=== PATIENT | female | born 1990 | race Caucasian/White ===

== ENCOUNTER → 2016-07-01 | Outpatient (CLI) | payer OTHER ==
[~2016-07-01] MED LIST: ETON1IMP2 SUBD
[2016-07-05 01:40] LABS: CHLAMYDIA TRACH RNA*** NOT DETECTED (NOT DETECTED); GC (NEIS GONORRHOEAE)RNA** NOT DETECTED (NOT DETECTED)
== END | disposition home or self-care (01) ==
LOC: C.LABSPEC 14:29
PROVIDERS: ATTEND Obstetrics & Gynecology
DX: Z01.419 Encounter for gynecological examination (general) (routine) without abnormal findings (principal)

== ENCOUNTER → 2017-07-24 | Outpatient (CLI) | payer OTHER | END | disposition home or self-care (01) | LOC: C.PAPS 11:39 | PROVIDERS: ATTEND Obstetrics & Gynecology | DX: Z12.4 Encounter for screening for malignant neoplasm of cervix (principal) ==

== ENCOUNTER 2020-06-15 04:53 | Inpatient (IN) ==
[2020-06-15] MEDS ORDERED: OXYTOCIN 30 UNITS/500 ML BAG IV PRN ×3 (08:26→17:12)
--- NOTE | 2020-06-15 08:49 | History & Physical Report ---
Date of Service June 15, 2020 Assessment & Plan Admission and Anticipated Discharge Date Admission Date: June 15, 2020 IUP at 40+ weeks in early labor. would like to walk for now- will AROM with epidural analgesia when appropriate anticipate vaginal History of Present Illness Primary Care Provider: Angie Umanzor DO Patient is a 29 yo white female EDC 06/12/20 who presents with regular ctns since 2 am. (-) SPROM but she has been having some bloody show. she ahs now shown cervical change from 3cm to 4 cm. contractions are still mild. GBS (-) otherwise uncomplicated. blood type O (+) Allergies Allergy/AdvReac Type Severity Reaction Status Date / Time doxycycline AdvReac Unknown Nausea/Vomi Verified 06/08/20 10:29 ting promethazine AdvReac Unknown Hallucinate Verified 06/08/20 10:29 Home Medications Medication Instructions Recorded Confirmed Type [id number] 400 mcg-om3 35 mg-dha 25 2 tab PO DAILY 06/28/19 06/15/20 History mg-epa 5 mg-fish oil chewable tablet omeprazole magnesium 20 mg 20 mg PO DAILY 11/28/19 06/15/20 History capsule,delayed release Patient History Medical History Abdominal pain Chest pain Panic attack Kidney stone Missed Prior miscarriage with , antepartum Tachycardia panic attack Varicella vaccination Surgical History History of ankle surgery History of cholecystectomy History of oral surgery Tooth extraction History of tonsillectomy Family History Father Heart disease Hypertension Diabetes Grandfather (Paternal) Hypertension Grandfather (Maternal) Hypertension Grandmother (Paternal) Breast cancer Social History Smoking Status: Former smoker Hx Alcohol Use: No Hx Substance Use: No Preferred Language: Azeri Communication Ability: Effective Beliefs That Will Affect Care: None marital status: marital status details: Tyson Elena (30) [phone] Current Living Situation: Spouse Current Living Situation Comment: lives with spouse, dogs, cat-spouse changing litter current occupational status: employed 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 Other Information That Helps Us Care for You: No Feels Safe at Home: Yes Safety Concerns: Feels Safe At This Time Assistive Devices: Contacts and Glasses Review of Systems All systems reviewed & are unremarkable except as noted in HPI & below Physical Exam Constitutional: WD/WN, vitals as above Respiratory: normal respiratory effort, lungs clear to auscultation Cardiovascular: RRR, no murmur, no edema Gastrointestinal (Abdomen): normal bowel sounds, soft, nontender, no hepatosplenomegaly Psychiatric: A+Ox3, euthymic affect Genitourinary: OB Exam Abdomen: + vertex and + estimated weight (6-7 pounds) Manual OB Exam: + cervical dilation 4 cm, + cervical effacement 90% and + station 0 OB Exam Monitor Tracing: + external FHT monitor used, + external uterine monitor used, + category I and + normal FHT variability Results & Data ([facility]) Vital Signs (Past 12 Hours) Vital Signs Temp Pulse Resp BP 06/15/20 07:08 99.3 F 75 20 134/83 06/15/20 06:28 98.4 F 06/15/20 05:18 74 143/81 H 06/15/20 05:11 100.2 F H 18 Code Status & VTE Plan VTE Prophylaxis Plan VTE Prophylaxis will be ordered: No Coding Level of Care Code None
[2020-06-15 08:55] LABS: Hematocrit (blood only) 34.5 % (37-47); Hemoglobin 11.5 g/dL (12.0-16.0); Mean Corpuscular Hemoglobin 28.3 pg (25-34); Mean Corpuscular Hgb Conc 33.3 g/dL (32-36); Mean Corpuscular Volume 84.8 fL (80-100); Mean Platelet Volume 10.1 fL (7.4-10.4); Platelet Count 235 K/uL (130-400); RDW Coefficient of Variation 14.1 % (11.5-14.5); RDW Standard Deviation 43.6 fL (36.4-46.3); Red Blood Count 4.07 M/uL (4.2-5.4)
[2020-06-15] MEDS: LACTATED RINGER'S 1,000 ML IV PRN ×2 (12:26→14:43)
[2020-06-15] MEDS ORDERED: ePHEDrine sulfate 50 MG/ML AMP ONE (12:43)
[2020-06-15] MEDS ORDERED: SODIUM CHLORIDE 0.9% INJ 10 ML VIAL ONE (12:43)
[2020-06-15] MEDS ORDERED: BUPIVACAINE 0.25% 30 ML VIAL ONE (12:43)
[2020-06-15] MEDS ORDERED: fentaNYL 2MCG/ML ROPIVACAINE 1.25MG/ML 100 ML BAG EPI ONE (12:44)
[2020-06-15] MEDS ORDERED: fentaNYL citrate 100 MCG/2 ML VIAL ONE (12:44)
[2020-06-15] MEDS ORDERED: diphenhydrAMINE 50 MG/ML VIAL IV PRN (12:50)
[2020-06-15] MEDS ORDERED: fentaNYL 2MCG/ML ROPIVACAINE 1.25MG/ML 100 ML BAG EPI PRN (12:50)
[2020-06-15] MEDS ORDERED: NALOXONE HCL 1 MG in SODIUM CHLORIDE 0.9% 1000ML 1,000 ML IV PRN (12:50)
[2020-06-15] MEDS ORDERED: ePHEDrine sulfate 50 MG/ML AMP IV PRN (12:50)
[2020-06-15] MEDS ORDERED: ONDANSETRON INJ 2 MG/ML 2 ML VIAL IV PRN (12:50)
[2020-06-15] MEDS ORDERED: NALOXONE HCL 0.4 MG/1 ML VIAL/CARP IV PRN (12:50)
--- NOTE | 2020-06-15 12:52 | Anesthesiology Consultation ---
Date of Service June 15, 2020 Assessment & Plan (1) Encounter for pre-operative examination: Chart Review Chart Review: Patient NOT seen in Pre Admission Testing and Acceptable Risk for Labor Epidural Consults Requested none History Height/Weight Height: 5 ft 4 in Weight: 104.326 kg Allergies Allergy/AdvReac Type Severity Reaction Status Date / Time doxycycline AdvReac Unknown Nausea/Vomi Verified 06/08/20 10:29 ting promethazine AdvReac Unknown Hallucinate Verified 06/08/20 10:29 Medications Home Medications Medication Instructions Recorded Confirmed Last Taken [id number] 400 mcg-om3 35 mg-dha 25 2 tab PO DAILY 06/28/19 06/15/20 06/15/20 mg-epa 5 mg-fish oil chewable tablet omeprazole magnesium 20 mg 20 mg PO DAILY 11/28/19 06/15/20 06/15/20 capsule,delayed release Active Medications Generic Name Dose Route Start Last Admin Trade Name Freq PRN Reason Stop Dose Admin Lactated Ringer's 1,000 mls @ 125 mls/hr 06/15/20 08:26 06/15/20 13:10 Lr IV 06/17/20 08:25 125 mls/hr .Q8H PRN Infusion L&D Protocol Protocol Past Medical History Medical History Abdominal pain Chest pain Panic attack Kidney stone Missed Prior miscarriage with , antepartum Tachycardia panic attack Varicella vaccination Exercise / Class Metabolic Activity II 4-5 Yardwork/Stairs/Walk up hill Past Family History Family History Father Heart disease Hypertension Diabetes Grandfather (Paternal) Hypertension Grandfather (Maternal) Hypertension Grandmother (Paternal) Breast cancer Past Surgical History Surgical History History of ankle surgery History of cholecystectomy History of oral surgery Tooth extraction History of tonsillectomy Past Anesthesia History No Hx of Anesthesia Complications and No Family Hx of Anesthesia Complications History of PONV No Hx of PONV and No Hx of Motion Sickness Social History Smoking Status: Former smoker Do You Dip or Chew Tobacco: No Hx Alcohol Use: No Hx Substance Use: No Physical Exam Vital Signs Last Vital Signs Temp 36.7 C 06/15/20 11:52 Pulse 99 H 06/15/20 13:12 Resp 18 06/15/20 11:52 BP 134/79 06/15/20 11:54 Pulse Ox 100 06/15/20 13:12 Testing Laboratory Results 06/15/20 08:46
[2020-06-15] MEDS ORDERED: ACETAMINOPHEN 325 MG TAB PO PRN (16:52)
[2020-06-15] MEDS ORDERED: DIPHTHERIA/TETANUS/PERTUSSIS 0.5 ML SYR/VIAL IM ONE (17:12)
[2020-06-15] MEDS ORDERED: BENZOCAINE 20% AER SPR 82.5 GM CAN EXT PRN (17:12)
[2020-06-15] MEDS ORDERED: HYDROCORTISONE ACETATE 25 MG SUPP PR PRN (17:12)
[2020-06-15] MEDS ORDERED: bisacodyL 10 MG SUPP PR PRN (17:12)
[2020-06-15] MEDS ORDERED: SUPERCREAM 0.870% 15 GM JAR EXT PRN (17:12)
--- NOTE | 2020-06-15 18:13 | Anesthesia Procedure Note ---
Date of Service June 15, 2020 Anesthesia Post Epidural Note Vital Signs Vital Signs: Temp Pulse Resp BP Pulse Ox 36.9 C 102 H 16 149/71 H 100 06/15/20 16:42 06/15/20 17:58 06/15/20 17:27 06/15/20 17:58 06/15/20 16:42 Notes Mental Status: alert / awake / arousable and participated in evaluation Patient Amnestic to Procedure: No Nausea / Vomiting: adequately controlled Pain: adequately controlled Airway Patency, RR, SpO2: stable & adequate BP & HR: stable & adequate Hydration State: stable & adequate Neuraxial Anesthesia: was administered and sensory block is resolving Anesthetic Complications: no major complications apparent and Pt Satisfied with anesthetic care Epidural: Removed without complications and With tip intact
[2020-06-15] MEDS: IBUPROFEN 600 MG TAB PO PRN (18:30)
[2020-06-15] MEDS ORDERED: oxyCODONE/ACETAMINOPHEN 5mg/325mg TAB PO PRN (18:49)
[2020-06-15] MEDS: DOCUSATE SODIUM 100 MG CAP PO SCH (20:52)
--- NOTE | 2020-06-15 21:13 | Delivery Summary ---
Vaginal Delivery Summary Date of Service June 15, 2020 Patient is a 29-year-old -0-1-0 white female who presented in active labor. After she received effective epidural analgesia, membranes were ruptured for thin meconium stained fluid. Pitocin augmentation was begun. She progressed to full dilation and pushed effectively over intact perineum for delivery of a viable male infant. The rest of the delivered easily and was placed on the mother's abdomen for further attention and drying. There was spontaneous crying and the infant was vigorous. The placenta was expressed intact with a three-vessel cord. A second-degree perineal laceration was repaired with 3-0 chromic in the usual fashion. bleeding was controlled with dilute Pitocin. Estimated blood loss was 250 cc. Mother and infant were doing well after delivery. All counts were correct x2. [facility] Vaginal Delivery Charge Vaginal Delivery Codes: 79903 global code for the antepartum, delivery, and post-
[2020-06-16] MEDS: IBUPROFEN 600 MG TAB PO PRN ×3 (02:10→15:08)
[2020-06-16 06:02] LABS: Hematocrit (blood only) 31.5 % (37-47); Hemoglobin 10.6 g/dL (12.0-16.0)
--- NOTE | 2020-06-16 06:19 | Obstetrical Progress Note ---
Date of Service <Leoncio Noyola MD - Last Filed: 06/16/20 06:53> June 16, 2020 Assessment & Plan <Leoncio Noyola MD - Last Filed: 06/16/20 06:53> (1) state: 29 y/o F s/p at 40w3d on 06/15/20, PPD1. O+. Rubella immune. Stable. - complicated by obesity. delivery uncomplicated. - Meeting milestones. Ambulating, voiding, +BM, eating. - without difficulties. - pain is minimal. - normotensive since . Denies headache, vision changes, RUQ pain. - Hb 11.5->10.6, appropriate. 2nd degree laceration during delivery, repaired. - tentative dispo this PM. Subjective <Leoncio Noyola MD - Last Filed: 06/16/20 06:53> Ambulation: ambulating normally Voiding: no voiding problems Passing Gas:: Yes Diet Tolerance:: regular diet Lochia:: Moderate Feeding Type:: breast feeding Current Pain Level(1-10): 0 Pain is minimal, 0/10 after ibuprofen, received 2 tabs overnight. 1/10 pain level without. +BM. No complaints. Feels comfortable w/ late evening dispo home. Review of Systems Denies fever, chills, sweats Denies shortness of breath, chest pain, palpitations. Denies breast pain. Denies dysuria. Denies headache or changes in vision. Denies nausea/vomiting. Denies numbness, tingling, weakness. Physical Exam <Leoncio Noyola MD - Last Filed: 06/16/20 06:53> General: Alert, oriented. No acute distress. Cardiac: Regular rate and rhythm, no murmurs/rubs/gallops. Respiratory: Clear to auscultation bilaterally, no wheezes/rales/rhonchi. No respiratory distress. Abdomen: , soft, nontender. Uterus: Uterine fundus firm, palpable 1.5cm below umbilicus. Lower Extremities: No lower extremity edema or swelling. No deep calf pain. Kathleen's negative bilaterally. Results & Data ([facility]) <Leoncio Noyola MD - Last Filed: 06/16/20 06:53> Vital Signs (Past 12 Hours) Vital Signs Temp Pulse Pulse Resp BP BP Pulse Ox 06/16/20 03:20 36.6 C 78 18 119/72 97 06/15/20 23:20 36.9 C 89 18 122/74 97 06/15/20 19:25 36.9 C 116 H 20 122/81 97 06/15/20 18:58 106 H 145/69 H 06/15/20 18:43 126 H 162/70 H 06/15/20 18:28 96 H 164/72 H 06/15/20 18:27 37.0 C 16 06/15/20 18:22 106 H 160/75 H 06/15/20 18:19 16 Medications Administered <Beronica Malcolm MD, FACOG - Last Filed: 06/16/20 07:15> Co-Signing Physician Notes Resident Physician Supervision Note: I interviewed and examined the patient. Discussed with Dr. Costa and agree with findings and plan as documented in the note. Any exceptions or clarifications are listed here: [None] Documented By: Beronica Malcolm MD, FACOG Resident Activity Tracking <Leoncio Noyola MD - Last Filed: 06/16/20 06:53> Resident Involvement: Resident Care Provided Care Provided: OB Delivery
[2020-06-16] MEDS: DOCUSATE SODIUM 100 MG CAP PO SCH (07:45)
[2020-06-16] MEDS ORDERED: PRENATAL VITAMIN 1 TAB PO SCH (08:00)
[2020-06-16] MEDS ORDERED: bisacodyL 5 MG TABEC PO SCH (20:00)
== END 2020-06-16 18:15 | disposition home or self-care (01) ==
LOC: OPB 04:53 → 4S1 05:02 → 4S2 19:26

== ENCOUNTER 2022-01-19 19:52 | Inpatient (IN) ==
[2022-01-19] MEDS ORDERED: LACTATED RINGER'S 1,000 ML IV ONE (20:18)
[2022-01-19] MEDS ORDERED: ACETAMINOPHEN 325 MG TAB PO PRN (20:18)
[2022-01-19] MEDS ORDERED: ONDANSETRON INJ 2 MG/ML 2 ML VIAL IV PRN (20:18)
[2022-01-19 20:48] LABS: Hematocrit (blood only) 33.3 % (34.1-44.9); Hemoglobin 10.8 g/dl (12.0-16.0); Mean Corpuscular Hemoglobin 27.1 pg (25.0-34.0); Mean Corpuscular Hgb Conc 32.4 g/dL (32.0-36.0); Mean Corpuscular Volume 83.7 fL (80.0-100.0); Mean Platelet Volume 10.2 fL (9.4-12.3); Platelet Count 252 K/uL (130-400); RDW Coefficient of Variation 13.5 % (11.5-14.5); RDW Standard Deviation 41.3 fL (36.4-46.3); Red Blood Count 3.98 M/uL (3.93-5.22); White Blood Count 10.96 K/ul (4.8-10.8)
[2022-01-19 21:20] LABS: Albumin Globulin Ratio 1.3 (0.9-2); Albumin Level 3.4 gm/dl (3.4-5.0); BUN Creatinine Ratio 12.5 (10-20); Bilirubin,Total 0.3 mg/dl (0.2-1.0); Calcium 8.6 mg/dl (8.5-10.1); Creatinine Clr Calc Pharmacy 180.2 ml/min; Est GFR (Non-African American) 124.2 ml/min; Globulin 2.6 gm/dl (2.5-4.0); Potassium 4.1 mmol/L (3.5-5.1)
[2022-01-19 22:04] LABS: Appearance Urine Clear (Clear); Bacteria Urine Automated 2+ (Negative); Bilirubin Urine Negative (Negative); Blood Urine Negative (Negative); Color Urine Yellow; Epithelial Cell Urine Auto >30 /lpf (0-5); Glucose Urine UA Negative (Negative); Ketones Urine Trace (Negative); Leukocyte Esterase Urine Trace (Negative); Nitrite Urine Negative (Negative); Protein Urine Trace (Negative); RBC Urine Automated 0-4 /hpf (0-4); Specific Gravity Urine 1.028 (1.000-1.030); Urobilinogen Urine Negative (Negative); pH Urine 6.5 (4.5-7.5)
[2022-01-20] MEDS ORDERED: OXYTOCIN 30 UNITS/500 ML BAG IV PRN ×3 (00:30→12:24)
[2022-01-20] MEDS ORDERED: LACTATED RINGER'S 1,000 ML IV ONE (00:30)
--- NOTE | 2022-01-20 00:33 | History & Physical Report ---
Date of Service January 20, 2022 Assessment & Plan (1) Encounter for supervision of normal in multigravida, antepartum: Plan: Leisa is a 31-year-old currently at 38 weeks 1 day gestational age with gestational hypertension diagnosed today 1. Fetus: Cat1/2 with periods of tachycardia 2. labor: IOL with Pierre/Pitocin 3. GBS negative 4 gHTN: mild range blood pressures noted. Dip showed trace proteinuria with protein creatinine ratio pending. Preeclampsia labs normal. (2) Velamentous insertion of umbilical cord: (3) Gestational hypertension without significant proteinuria: History of Present Illness Primary Care Provider: Angie Umanzor DO Leisa is a 31-year-old currently at 38w 1d days gestational age presents for triage for right upper quadrant abdominal pain, nausea and fevers that started in the early afternoon today. patient is reporting irregular contractions. Denies vaginal bleeding leakage of fluid point good movement. upon arrival patient was noted have tachycardia and was given a LR bolus which brought the heart rate down to the 150s. Patient was noted have mild range blood pressures pre clamps a labs were sent which were normal. CBC was normal including a normal white blood cell count. patient was noted be afebrile. Patient was maintained on Labor and delivery for 4 hours was noted have intermittent blood pressures in the mild range over the 4 hours. After the diagnosis gestational hypertension was noted I discussed the finding with the patient and recommended that she stay for delivery due to gestational hypertension. Patient was agreeable. In additions the patient's was complicated by velamentous cord insertion, and BMI greater than 35. Patient had COVID within the past 90 days. Labs: OB Labs: Hemoglobin 11.2 g/dL (12.0-16.0) L 11/12/21 Hematocrit 33.9 % (37-47) L 11/12/21 Mean Corpuscular Volume 88.5 fL (80-100) 11/12/21 Platelet Count 237 K/uL (130-400) 11/12/21 Glucose 1 Hour 50 gm Load 133 mg/dl (70-130) H 11/10/21 OB Optional Labs: Thyroid Stimulating Hormone (TSH) 1.626 uIu/ml (0.300-4.500) 11/12/21 Labs Reviewed: cf/sma neg declines genetics. declines QUAD 28 wk 2hr GTT wnl Allergies Allergy/AdvReac Type Severity Reaction Status Date / Time doxycycline AdvReac Intermediate Nausea/Vomi Verified 01/19/22 13:37 ting promethazine AdvReac Intermediate Hallucinate Verified 01/19/22 13:37 adhesive tape AdvReac Mild blister Verified 01/19/22 13:37 Home Medications Medication Instructions Recorded Confirmed Type omeprazole magnesium 20 mg 20 mg PO DAILY 11/28/19 01/19/22 History capsule,delayed release (Acid Roll Shop Supervisor (omeprazole)) sertraline 25 mg tablet 50 mg PO DAILY 05/06/21 01/19/22 History cetirizine 10 mg tablet (Zyrtec) 10 mg PO PRN 06/30/21 01/19/22 History prenat.vits,david,nmg-ugmz-idigm 1 tab PO DAILY 06/30/21 01/19/22 History famotidine 20 mg tablet (Pepcid) 20 mg PO DAILY 01/19/22 01/19/22 History Patient History Medical History (Updated 01/20/22 @ 07:20 by Satish Galeas MD) Abdominal pain Abnormal Pap smear of cervix Anxiety Chest pain Panic attack Depression Kidney stone Missed Prior miscarriage with , antepartum Tachycardia panic attack Varicella vaccination Surgical History H/O adenoidectomy History of ankle surgery History of cholecystectomy History of colposcopy History of oral surgery Tooth extraction History of tonsillectomy Family History Father Heart disease Hypertension Diabetes Grandfather (Paternal) Hypertension Grandfather (Maternal) Hypertension Colorectal cancer Prostate cancer Grandmother (Paternal) Breast cancer Dementia Mother COPD (chronic obstructive pulmonary disease) Social History (Updated 06/30/21 @ 14:20 by Zohra SMITH RN) Smoking Status: Never smoker Tobacco Type: Cigarettes Hx Alcohol Use: No Hx Substance Use: No Preferred Language: Wolof Communication Ability: Effective Flour Tester Required: No Beliefs That Will Affect Care: None marital status: marital status details: Tyson Elena (32) [phone] Current Living Situation: Spouse and Family Current Living Situation Comment: FOB, child, 2 dogs current occupational status: employed 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 Other Information That Helps Us Care for You: No Feels Safe at Home: Yes Safety Concerns: Feels Safe At This Time Assistive Devices: Glasses Physical Exam Respiratory: normal respiratory effort, lungs clear to auscultation Cardiovascular: RRR, no murmur, no edema Gastrointestinal (Abdomen): Inspection/Auscultation: abdomen normal to inspection Percussion/Palpation: abdomen soft; abdomen nontender, no guarding and abdomen not rigid Genitourinary: normal external appearance OB Exam Abdomen: + vertex Manual OB Exam: + cervical dilation 1 cm, + cervical effacement 30% and + station high OB Exam Monitor Tracing: + external FHT monitor used, + external uterine monitor used, + category I and + normal FHT variability Periods of tachycardia noted. irregular contractions Results & Data ([facility]) Vital Signs (Past 12 Hours) Vital Signs Temp Pulse Resp BP 01/20/22 00:30 123 H 143/83 H 01/20/22 00:18 116 H 139/76 01/20/22 00:09 127 H 135/81 01/19/22 23:49 110 H 149/69 H 01/19/22 23:30 107 H 140/75 01/19/22 23:13 109 H 136/77 01/19/22 23:11 36.8 C 01/19/22 22:50 101 H 147/84 H 01/19/22 22:30 100 H 144/73 H 01/19/22 22:09 102 H 136/72 01/19/22 21:51 100 H 143/74 H 01/19/22 21:29 98 H 145/73 H 01/19/22 21:10 110 H 134/79 01/19/22 20:49 98 H 147/79 H 01/19/22 20:17 111 H 136/82 01/19/22 20:08 37.4 C 20 Coding Level of Care Code None Diagnoses Encounter for supervision of normal in multigravida, antepartum Z34.80 Velamentous insertion of umbilical cord O43.129 Gestational hypertension without significant proteinuria O13.9
[2022-01-20 01:00] LABS: Creatinine Urine Random 184.8 mg/dl; Protein Creatinine Ratio Urine 0.1 (0-0.2); Total Protein Urine Random 20.9 mg/dl (0-11.9)
[2022-01-20] MEDS: LACTATED RINGER'S 1,000 ML IV PRN ×2 (01:52→08:35)
--- NOTE | 2022-01-20 07:02 | Obstetrical Progress Note ---
Date of Service January 20, 2022 Subjective _ is a _ yo female G_P_ who is now PPD #_ following spontaneous vaginal delivery at _ weeks. Reports feeling well this morning. _ abdominal cramping and _/10 pain well managed on analgesics. Voiding _. Tolerating meals overnight and able to ambulate some._ passing gas and _bowel movements. Some persistent lochia with some improvement this morning. Currently (breast/bottle) feeding. Review of Systems Denies fever, chills, sweats. Denies SOB, difficulty breathing, chest pain, palpitations, and chest pressure. Denies breast pain. Denies dysuria. Denies headache or changes in vision. Physical Exam General: Alert and oriented. No acute distress. CV: Regular rate and rhythm. No murmurs. Respiratory: CTA bilaterally. No rhonchi, wheezes, or crackles. No increased work of breathing. Abdomen: Positive bowel sounds. Soft, nontender, non distended. Uterus: Fundus firm and palpable _ cm below the umbilicus. Lower extremities: No LE edema. No deep calf pain. Kathleen's negative bilaterally. Results & Data ([facility]) Vital Signs (Past 12 Hours) Vital Signs Temp Pulse Resp BP 01/20/22 06:28 112 H 01/20/22 06:28 123/70 01/20/22 05:07 104 H 01/20/22 05:07 109/63 01/20/22 04:05 126 H 01/20/22 04:05 122/64 01/20/22 02:30 20 01/20/22 02:30 36.7 C 20 01/20/22 02:22 104 H 01/20/22 02:22 132/74 01/20/22 01:06 20 01/20/22 01:06 38.1 C H 20 01/20/22 01:00 112 H 01/20/22 01:00 133/72 01/20/22 00:51 110 H 130/72 01/20/22 00:41 121 H 166/72 H 01/20/22 00:30 123 H 143/83 H 01/20/22 00:18 116 H 139/76 01/20/22 00:09 127 H 135/81 01/19/22 23:49 110 H 149/69 H 01/19/22 23:30 107 H 140/75 01/19/22 23:13 109 H 136/77 01/19/22 23:11 36.8 C 01/19/22 22:50 101 H 147/84 H 01/19/22 22:30 100 H 144/73 H 01/19/22 22:09 102 H 136/72 01/19/22 21:51 100 H 143/74 H 01/19/22 21:29 98 H 145/73 H 01/19/22 21:10 110 H 134/79 01/19/22 20:49 98 H 147/79 H 01/19/22 20:17 111 H 136/82 01/19/22 20:08 37.4 C 20
[2022-01-20] MEDS ORDERED: fentaNYL citrate 100 MCG/2 ML VIAL ONE (08:20)
[2022-01-20] MEDS ORDERED: SODIUM CHLORIDE 0.9% INJ 10 ML VIAL ONE (08:20)
[2022-01-20] MEDS ORDERED: BUPIVACAINE 0.25% 30 ML VIAL ONE (08:20)
[2022-01-20] MEDS ORDERED: LIDOCAINE 2%/EPINEPHRINE 1:200,000 20 ML SDV ONE (08:20)
[2022-01-20] MEDS ORDERED: ePHEDrine sulfate 50 MG/ML AMP ONE (08:20)
[2022-01-20] MEDS ORDERED: fentaNYL 2MCG/ML ROPIVACAINE 1.25MG/ML 100 ML BAG EPI ONE (08:21)
--- NOTE | 2022-01-20 08:49 | Labor Progress Brief Note ---
Date of Service January 20, 2022 Subjective Late entry. Pierre came out. denies yarbrough or visual change or ruq pain. Assessment & Plan (1) Gestational hypertension without significant proteinuria: (2) 38 weeks gestation of : Plan will see how arom helps labor pattern. pit continues. fhts categ 1. this was late entry note, seen approx 730a Admission and Anticipated Discharge Date Admission Date: January 20, 2022 Physical Exam Constitutional: WD/WN, vitals as above Genitourinary: Manual OB Exam: + cervical dilation 4 cm, + cervical effacement 40%, + station -2 and + amniotic fluid (AROM) clear OB Exam Monitor Tracing: + external FHT monitor used, + external uterine monitor used (irreg pit at 14), + category I and + normal FHT variability Results & Data ([facility]) Vital Signs (Past 12 Hours) Vital Signs Temp Pulse Resp BP 01/20/22 07:30 98.8 F 18 01/20/22 08:08 109 H 01/20/22 08:08 126/71 01/20/22 07:30 18 01/20/22 07:30 98.8 F 18 01/20/22 07:22 111 H 01/20/22 07:22 119/77 01/20/22 07:08 110 H 01/20/22 07:08 127/86 01/20/22 06:28 112 H 01/20/22 06:28 123/70 01/20/22 05:07 104 H 01/20/22 05:07 109/63 01/20/22 04:05 126 H 01/20/22 04:05 122/64 01/20/22 02:30 20 01/20/22 02:30 98.1 F 20 01/20/22 02:22 104 H 01/20/22 02:22 132/74 01/20/22 01:06 20 01/20/22 01:06 100.6 F H 20 01/20/22 01:00 112 H 01/20/22 01:00 133/72 01/20/22 00:51 110 H 130/72 01/20/22 00:41 121 H 166/72 H 01/20/22 00:30 123 H 143/83 H 01/20/22 00:18 116 H 139/76 01/20/22 00:09 127 H 135/81 01/19/22 23:49 110 H 149/69 H 01/19/22 23:30 107 H 140/75 01/19/22 23:13 109 H 136/77 01/19/22 23:11 98.2 F 01/19/22 22:50 101 H 147/84 H 01/19/22 22:30 100 H 144/73 H 01/19/22 22:09 102 H 136/72 01/19/22 21:51 100 H 143/74 H 01/19/22 21:29 98 H 145/73 H 01/19/22 21:10 110 H 134/79 01/19/22 20:49 98 H 147/79 H Coding Level of Care Code None Diagnoses Gestational hypertension without significant proteinuria O13.9 38 weeks gestation of Z3A.38
[2022-01-20] MEDS ORDERED: NALBUPHINE HCL INJ 10 MG/ML AMP IV PRN (09:14)
[2022-01-20] MEDS ORDERED: NALOXONE HCL 0.4 MG/1 ML VIAL/CARP IV PRN (09:14)
[2022-01-20] MEDS ORDERED: PROMETHAZINE HCL 6.25 MG in SODIUM CHLORIDE 0.9% 50 ML IV PRN (09:14)
[2022-01-20] MEDS ORDERED: ONDANSETRON INJ 2 MG/ML 2 ML VIAL IV PRN (09:14)
[2022-01-20] MEDS ORDERED: NALOXONE HCL 1 MG in SODIUM CHLORIDE 0.9% 1000ML 1,000 ML IV PRN (09:14)
[2022-01-20] MEDS ORDERED: ePHEDrine sulfate 50 MG/ML AMP IV PRN (09:14)
[2022-01-20] MEDS ORDERED: diphenhydrAMINE 50 MG/ML VIAL IV PRN (09:14)
[2022-01-20] MEDS ORDERED: fentaNYL 2MCG/ML ROPIVACAINE 1.25MG/ML 100 ML BAG EPI PRN (09:14)
--- NOTE | 2022-01-20 09:14 | Anesthesiology Consultation ---
Date of Service January 20, 2022 Assessment & Plan Chart Review Chart Review: Patient NOT seen in Pre Admission Testing and Acceptable Risk for Labor Epidural Consults Requested none ASA ASA2 Proposed Anesthesia Anesthesia Type: Labor Epidural Risk / Benefits Reviewed With: PT / POA / Parent / Guardian, Accepts Plan and Informed Consent Obtained History Height/Weight Height: 5 ft 4 in Weight: 114.033 kg Allergies Allergy/AdvReac Type Severity Reaction Status Date / Time doxycycline AdvReac Intermediate Nausea/Vomi Verified 01/19/22 13:37 ting promethazine AdvReac Intermediate Hallucinate Verified 01/19/22 13:37 adhesive tape AdvReac Mild blister Verified 01/19/22 13:37 Medications Home Medications Medication Instructions Recorded Confirmed Last Taken omeprazole magnesium 20 mg 20 mg PO DAILY 11/28/19 01/19/22 01/19/22 09:00 capsule,delayed release (Acid Coat Feller (omeprazole)) sertraline 25 mg tablet 50 mg PO DAILY 05/06/21 01/19/22 01/19/22 09:00 cetirizine 10 mg tablet (Zyrtec) 10 mg PO PRN 06/30/21 01/19/22 01/19/22 09:00 prenat.vits,david,inh-pwni-gqknr 1 tab PO DAILY 06/30/21 01/19/22 01/19/22 09:00 famotidine 20 mg tablet (Pepcid) 20 mg PO DAILY 01/19/22 01/19/22 01/19/22 09:00 Active Medications Generic Name Dose Route Start Last Admin Trade Name Freq PRN Reason Stop Dose Admin Acetaminophen 650 mg 01/19/22 20:18 01/20/22 01:14 Acetaminophen 325 Mg Tab PO 02/18/22 20:17 650 mg Q4H PRN Administration Pain or Fever Lactated Ringer's 1,000 mls @ 125 mls/hr 01/20/22 00:30 01/20/22 09:12 Lr IV 01/22/22 00:29 125 mls/hr .Q8H PRN Infusion L&D Protocol Protocol Oxytocin 30 units in 500 mls @ 16 mls/hr 01/20/22 00:30 01/20/22 08:00 Pitocin IV 01/22/22 00:29 0.96 units/hr .Q24H PRN 16 mls/hr Labor Induction/Augmentation Titration Protocol 0.96 UNITS/HR Past Medical History Medical History (Updated 01/20/22 @ 08:47 by Crystal Rao MD, FACOG) Abdominal pain Abnormal Pap smear of cervix Anxiety Chest pain Panic attack Depression Kidney stone Missed Prior miscarriage with , antepartum Tachycardia panic attack Varicella vaccination Exercise / Class Metabolic Activity II 4-5 Yardwork/Stairs/Walk up hill Past Family History Family History Father Heart disease Hypertension Diabetes Grandfather (Paternal) Hypertension Grandfather (Maternal) Hypertension Colorectal cancer Prostate cancer Grandmother (Paternal) Breast cancer Dementia Mother COPD (chronic obstructive pulmonary disease) Past Surgical History Surgical History H/O adenoidectomy History of ankle surgery History of cholecystectomy History of colposcopy History of oral surgery Tooth extraction History of tonsillectomy Past Anesthesia History No Hx of Anesthesia Complications and No Family Hx of Anesthesia Complications History of PONV No Hx of PONV and No Hx of Motion Sickness Social History Smoking Status: Never smoker Hx Alcohol Use: No Hx Substance Use: No Physical Exam Vital Signs Last Vital Signs Temp 37.1 C 01/20/22 07:30 Pulse 110 H 01/20/22 09:11 Resp 18 01/20/22 09:07 BP 130/71 01/20/22 09:11 ENMT Mouth: no dentition abnormality Thyromental Distance: > or= 3.5 Finger Breadths Mallampati Class: II Neck normal visual inspection Respiratory normal respiratory effort Auscultation: lungs clear to auscultation bilaterally Cardiovascular Rate/Rhythm: regular rate and regular rhythm Psychiatric Orientation: alert Testing Laboratory Results 01/19/22 20:33 01/19/22 20:33 Urine Color Yellow 01/19/22 21:33 Urine Appearance Clear (Clear) 01/19/22 21:33 Urine pH 6.5 (4.5-7.5) 01/19/22 21:33 Ur Specific [place] 1.028 (1.000-1.030) 01/19/22 21:33 Urine Protein Trace (Negative) H 01/19/22 21:33 Urine Glucose (UA) Negative (Negative) 01/19/22 21:33 Urine Ketones Trace (Negative) H 01/19/22 21:33 Urine Nitrite Negative (Negative) 01/19/22 21:33 Ur Leukocyte Esterase Trace (Negative) H 01/19/22 21:33 Urine WBC (Auto) 5-10 /hpf (0-5) H 01/19/22 21:33 Urine RBC (Auto) 0-4 /hpf (0-4) 01/19/22 21:33 U Hyaline Cast (Auto) 1-5 /lpf (0-5) 01/19/22 21:33 U Epithel Cells (Auto) >30 /lpf (0-5) H 01/19/22 21:33 Urine Bacteria (Auto) 2+ (Negative) H 01/19/22 21:33 Blood Type O Positive 01/19/22 20:33 Antibody Screen NEGATIVE 01/19/22 20:33
--- NOTE | 2022-01-20 10:44 | Labor Progress Brief Note ---
Date of Service January 20, 2022 Subjective pt comfortable with epidural. when out to check her cx but nurse just did and 6cm/80% Assessment & Plan (1) 38 weeks gestation of : (2) Gestational hypertension without significant proteinuria: Plan patient being repositioned. fhts not traced currently but ? early vs. variable decels on prior tracing. will need to reeval in next several minutes to see if any need for internal monitors. fhts categ 2. Admission and Anticipated Discharge Date Admission Date: January 20, 2022 Physical Exam Genitourinary: Manual OB Exam: + cervical dilation 6 cm and + cervical effacement 80% (per nurse) OB Exam Monitor Tracing: + external FHT monitor used, + external uterine monitor used (q3-4 pit at 18), + category II and + normal FHT variability Results & Data ([facility]) Vital Signs (Past 12 Hours) Vital Signs Temp Pulse Resp BP Pulse Ox 01/20/22 07:30 98.8 F 18 01/20/22 10:37 100 H 01/20/22 10:37 136/62 01/20/22 09:15 98.2 F 01/20/22 10:22 97 H 01/20/22 10:22 135/64 01/20/22 10:05 98 H 01/20/22 10:05 136/63 01/20/22 09:55 16 01/20/22 09:55 16 01/20/22 10:00 18 01/20/22 10:00 18 01/20/22 10:03 101 H 01/20/22 10:03 133/63 01/20/22 09:49 18 01/20/22 09:49 18 01/20/22 10:01 111 H 01/20/22 10:01 131/63 01/20/22 09:59 108 H 01/20/22 09:59 128/69 01/20/22 09:57 103 H 01/20/22 09:57 121/59 L 01/20/22 09:55 111 H 01/20/22 09:55 130/60 01/20/22 09:53 115 H 01/20/22 09:53 133/60 01/20/22 09:51 115 H 01/20/22 09:51 146/65 H 01/20/22 09:49 121 H 01/20/22 09:49 138/68 07/28/22 09:47 120 H 01/20/22 09:47 136/67 01/20/22 09:45 126 H 01/20/22 09:45 129/63 01/20/22 09:44 131 H 01/20/22 09:44 124/58 L 01/20/22 09:39 122 H 01/20/22 09:39 105/57 L 01/20/22 09:38 93 01/20/22 09:37 118 H 01/20/22 09:38 123 H 01/20/22 09:37 100/55 L 01/20/22 09:36 122 H 01/20/22 09:36 119/56 L 01/20/22 09:33 114 H 01/20/22 09:33 112/57 L 01/20/22 09:31 108 H 01/20/22 09:31 122/64 01/20/22 09:29 112 H 01/20/22 09:29 116/61 01/20/22 09:29 18 01/20/22 09:29 18 01/20/22 09:27 118 H 01/20/22 09:27 117/59 L 01/20/22 09:27 16 01/20/22 09:27 16 01/20/22 09:27 94 01/20/22 09:27 115 H 01/20/22 09:16 16 01/20/22 09:16 16 01/20/22 09:22 16 01/20/22 09:22 16 01/20/22 09:25 118 H 01/20/22 09:25 107/56 L 01/20/22 09:23 113 H 01/20/22 09:23 117/62 01/20/22 09:21 112 H 01/20/22 09:21 116/57 L 01/20/22 09:19 108 H 01/20/22 09:19 105/57 L 01/20/22 09:17 110 H 01/20/22 09:17 110/55 L 01/20/22 09:16 113 H 01/20/22 09:16 111/55 L 01/20/22 09:10 16 01/20/22 09:10 16 01/20/22 09:11 110 H 01/20/22 09:11 130/71 01/20/22 09:09 116 H 01/20/22 09:09 130/70 01/20/22 09:07 117 H 01/20/22 09:07 133/62 01/20/22 09:07 18 01/20/22 09:07 18 01/20/22 09:06 18 01/20/22 09:06 18 01/20/22 09:05 110 H 01/20/22 09:05 124/61 01/20/22 09:05 18 01/20/22 09:05 18 01/20/22 09:03 116 H 01/20/22 09:03 122/66 01/20/22 09:01 121 H 01/20/22 09:01 121/63 01/20/22 08:57 97 H 01/20/22 08:57 129/58 L 01/20/22 08:52 116 H 01/20/22 08:52 111/63 01/20/22 08:08 109 H 01/20/22 08:08 126/71 01/20/22 07:30 18 01/20/22 07:30 98.8 F 18 01/20/22 07:22 111 H 01/20/22 07:22 119/77 01/20/22 07:08 110 H 01/20/22 07:08 127/86 01/20/22 06:28 112 H 01/20/22 06:28 123/70 01/20/22 05:07 104 H 01/20/22 05:07 109/63 01/20/22 04:05 126 H 01/20/22 04:05 122/64 01/20/22 02:30 20 01/20/22 02:30 98.1 F 20 01/20/22 02:22 104 H 01/20/22 02:22 132/74 01/20/22 01:06 20 01/20/22 01:06 100.6 F H 20 01/20/22 01:00 112 H 01/20/22 01:00 133/72 01/20/22 00:51 110 H 130/72 01/20/22 00:41 121 H 166/72 H 01/20/22 00:30 123 H 143/83 H 01/20/22 00:18 116 H 139/76 01/20/22 00:09 127 H 135/81 07/27/22 23:49 110 H 149/69 H 01/19/22 23:30 107 H 140/75 01/19/22 23:13 109 H 136/77 01/19/22 23:11 98.2 F 01/19/22 22:50 101 H 147/84 H Coding Level of Care Code None Diagnoses 38 weeks gestation of Z3A.38 Gestational hypertension without significant proteinuria O13.9
--- NOTE | 2022-01-20 11:58 | Delivery Summary ---
Vaginal Delivery Summary Date of Service January 20, 2022 Vaginal Delivery Summary and 2nd Degree LAC The patient dilated to complete and pushed to deliver a viable female infant Apgars 8 and 9 via over 2nd degree perineal laceration. Mouth and nose bulb suctioned at perineum. Shoulders and body delivered with ease. Infant was vigorous and crying at . Cord clamped at 30 seconds of life and infant to maternal abdomen where the cord was then doubly clamped and cut. Placenta delivered spontaneously and intact, three-vessel cord. Hemostasis achieved with dilute pitocin and uterine massage and drainage of the bladder for approximately 120 cc under sterile conditions. Laceration repaired with 3-0 vicryl in usual fashion, extended to right labia and was repaired in routine fashion. Cervix and sulci intact. EBL 300 cc. Mother and baby stable in recovery. [facility] Vaginal Delivery Charge Delivery Type Details: and 2nd Degree LAC
[2022-01-20] MEDS ORDERED: BENZOCAINE 20% AER SPR 82.5 GM CAN EXT PRN (12:24)
[2022-01-20] MEDS ORDERED: ACETAMINOPHEN 325 MG TAB PO PRN (12:24)
[2022-01-20] MEDS ORDERED: HYDROCORTISONE ACETATE 25 MG SUPP PR PRN (12:24)
[2022-01-20] MEDS ORDERED: bisacodyL 10 MG SUPP PR PRN (12:24)
[2022-01-20] MEDS ORDERED: OXYTOCIN 20 UNITS in LACTATED RINGER'S 1,000 ML IV SCH (12:24)
[2022-01-20] MEDS ORDERED: oxyCODONE/ACETAMINOPHEN 5mg/325mg TAB PO PRN (12:24)
[2022-01-20] MEDS ORDERED: DIPHTHERIA/TETANUS/PERTUSSIS 0.5 ML SYR/VIAL IM ONE (12:24)
--- NOTE | 2022-01-20 12:59 | Anesthesia Procedure Note ---
Date of Service January 20, 2022 Anesthesia Post Epidural Note Vital Signs Vital Signs: Temp Pulse Resp BP Pulse Ox 37.5 C 101 H 16 123/61 93 01/20/22 12:00 01/20/22 12:48 01/20/22 12:45 01/20/22 12:48 01/20/22 09:38 Pain Intensity Bilateral Abdomen: Pain Intensity: 0 Notes Mental Status: alert / awake / arousable Nausea / Vomiting: adequately controlled Pain: adequately controlled Airway Patency, RR, SpO2: stable & adequate BP & HR: stable & adequate Hydration State: stable & adequate Neuraxial Anesthesia: was administered and sensory block is resolving Anesthetic Complications: no major complications apparent and Pt Satisfied with anesthetic care Epidural: Removed without complications and With tip intact
[2022-01-20] MEDS: IBUPROFEN 600 MG TAB PO PRN (18:38)
[2022-01-20] MEDS: CETIRIZINE HCL 10 MG TABLET PO SCH (18:39)
[2022-01-20] MEDS: DOCUSATE SODIUM 100 MG CAP PO SCH (20:21)
[2022-01-21] MEDS: IBUPROFEN 600 MG TAB PO PRN ×2 (00:09→09:59)
--- NOTE | 2022-01-21 05:53 | Obstetrical Progress Note ---
Date of Service <Rosemary Duncan DO - Last Filed: 01/21/22 06:36> January 21, 2022 Assessment & Plan <Rosemary Fernando Duncan DO - Last Filed: 01/21/22 06:36> (1) : Patient is PPD 1 s/p and doing well. - Feels well today. Eating well, voiding well, ambulating well - Pain well controlled with ibuprofen 600 mg Q4H PRN - OOB, ambulation, diet progression as tolerated - Plan to discharge tomorrow - After discharge, [address] follow up with Dr[address] Rao <Crystal Rao MD, FACOG - Last Filed: 01/21/22 07:27> (1) : Subjective <Rosemary Duncan DO - Last Filed: 01/21/22 06:36> Leisa Elena is a 31 yo female who is now PPD #1 following spontaneous vaginal delivery at 38 weeks. Reports feeling well this morning. Minimal abdomi nal cramping and 0/10 pain this morning well managed on analgesics. Voiding without issue. Tolerating meals overnight and able to ambulate some. Endorses passing gas but no bowel movements. Some persistent lochia with much improvement this morning. Currently mainly breast feeding but she is supplementing with bottle feeds d/t baby's blood sugar instability. Review of Systems Denies fever, chills, sweats. Denies SOB, difficulty breathing, chest pain, palpitations, and chest pressure. Denies breast pain. Denies dysuria. Some headaches on and off but better with analgesics Denies changes in vision. Physical Exam <Rosemary Duncan DO - Last Filed: 01/21/22 06:36> General: Alert and oriented. No acute distress. CV: Regular rate and rhythm. No murmurs. Respiratory: CTA bilaterally. No rhonchi, wheezes, or crackles. No increased work of breathing. Abdomen: Positive bowel sounds. Soft, nontender, non distended. Uterus: Fundus firm and palpable 3 cm below the umbilicus. Lower extremities: No LE edema. No deep calf pain. Kathleen's negative bilaterally. Results & Data ([facility]) <Rosemary Duncan DO - Last Filed: 01/21/22 06:36> Vital Signs (Past 12 Hours) Vital Signs Temp Pulse Resp BP 01/21/22 04:00 36.8 C 76 16 117/75 01/20/22 23:00 36.8 C 84 16 109/78 01/20/22 19:00 37.2 C 81 18 112/72 <Crystal Rao MD, FACOG - Last Filed: 01/21/22 07:27> Co-Signing Physician Notes Resident Physician Supervision Note: I was present with Dr. Duncan during the history and exam. I discussed the case with the resident and agree with the findings and plan as documented in the note. Any exceptions or clarifications are listed here: stable routine care. abd soft ff 2 nt ext nt calves. will review dc instructions today in case able to go home. baby status uncertain. rh pos, ri, breast. Documented By: Crystal Rao MD, FACOG Resident Activity Tracking <Rosemary Duncan, DO - Last Filed: 01/21/22 06:36> Resident Involvement: Resident Care Provided Care Provided: OB Delivery
[2022-01-21 06:59] LABS: Hematocrit (blood only) 31.4 % (34.1-44.9); Mean Corpuscular Hemoglobin 27.2 pg (25.0-34.0); Mean Corpuscular Hgb Conc 31.8 g/dL (32.0-36.0); Mean Corpuscular Volume 85.6 fL (80.0-100.0); Mean Platelet Volume 9.8 fL (9.4-12.3); Platelet Count 200 K/uL (130-400); RDW Coefficient of Variation 14.1 % (11.5-14.5); RDW Standard Deviation 43.8 fL (36.4-46.3); Red Blood Count 3.67 M/uL (3.93-5.22); White Blood Count 6.75 K/ul (4.8-10.8)
[2022-01-21] MEDS ORDERED: PRENATAL VITAMIN 1 TAB PO SCH (08:00)
[2022-01-21] MEDS ORDERED: SERTRALINE HCL 50 MG TABLET PO SCH (09:00)
[2022-01-21] MEDS ORDERED: FAMOTIDINE 20 MG TAB PO SCH (09:00)
[2022-01-21] MEDS ORDERED: PANTOprazole 40 MG TAB PO SCH (09:00)
[2022-01-21] MEDS: DOCUSATE SODIUM 100 MG CAP PO SCH (09:59)
[2022-01-21] MEDS: CETIRIZINE HCL 10 MG TABLET PO SCH (10:01)
== END 2022-01-21 15:32 | disposition home or self-care (01) | DRG 807 ==
LOC: OPB 19:52 → 4S1 19:59 → 4E2 01-20 15:21
DX: Z86.16 Personal history of COVID-19; Z88.1 Allergy status to other antibiotic agents; O13.4 Gestational [pregnancy-induced] hypertension without significant proteinuria, complicating childbirth; Z88.8 Allergy status to other drugs, medicaments and biological substances; O76 Abnormality in fetal heart rate and rhythm complicating labor and delivery; O99.344 Other mental disorders complicating childbirth; Z37.0 Single live birth; Z3A.38 38 weeks gestation of pregnancy; Z79.899 Other long term (current) drug therapy; O70.1 Second degree perineal laceration during delivery; O43.123 Velamentous insertion of umbilical cord, third trimester; F32.A Depression, unspecified